=== PATIENT | male | born 1975 | race Caucasian/White ===

== ENCOUNTER 2017-08-03 17:45 | Emergency (ER) | payer MEDICAID ==
[~2017-08-03] VITALS: Ht 172.7 cm; Wt 90.7 kg
[2017-08-03 18:23] VITALS: BP 124/68
== END 2017-08-03 19:23 | disposition home or self-care (01) ==
LOC: ER 17:57
DX: J40 Bronchitis, not specified as acute or chronic (principal); F17.210 Nicotine dependence, cigarettes, uncomplicated
CPT/HCPCS: A4606; Z7610